=== PATIENT | male | born 1945 | race Hispanic/Latino ===

== ENCOUNTER 2019-10-27 18:51 | Inpatient (IN) | payer OTHER, MEDICARE ==
[~2019-10-27] VITALS: Ht 162.6 cm; Wt 71.8 kg
[2019-10-27] MEDS ORDERED: MORPHINE SULFATE 2 MG/ML 1ML SYG ONE (19:14)
[2019-10-27 20:54] LABS: BASOPHILS % (AUTO) 0.2 % (0.0-5.0); EOSINOPHILS % (AUTO) 0.5 % (0.0-8.0); HEMATOCRIT 34.6 % (42-54); LYMPHOCYTES % (AUTO) 4.8 % (21.0-51.0); MEAN CORPUSCULAR HEMOGLOBIN 25.1 pg (27.0-33.0); MEAN CORPUSCULAR HGB CONC 31.2 g/dL (32.0-36.0); MEAN CORPUSCULAR VOLUME 80.5 fL (79-99); MONOCYTES % (AUTO) 7.2 % (3.0-13.0); NEUTROPHILS % (AUTO) 87.1 % (40.0-77.0); PLATELET COUNT (AUTO) 154 K/uL (130-400); RED CELL DISTRIBUTION WIDTH 16.7 % (11.0-15.5); WHITE BLOOD COUNT (AUTO) 11.1 K/uL (4.8-10.8)
[2019-10-27] MEDS ORDERED: HYDROCODONE/ACETAMINOPHEN 5/325 MG TAB PO PRN (21:00)
[2019-10-27] MEDS ORDERED: HYDROMORPHONE HCL 0.5 MG/0.5 ML ML IV PRN (21:00)
[2019-10-27 21:06] LABS: CREATININE 1.4 mg/dL (0.5-1.5); POTASSIUM 4.7 mmol/L (3.5-5.1)
[2019-10-27 21:08] LABS: INR 0.99 (0.85-1.15); PARTIAL THROMBOPLASTIN TIME 34.5 SEC (26.3-35.5); PROTHROMBIN TIME 10.7 SEC (9.6-11.6)
[2019-10-27 23:40] VITALS: BP 104/56
[2019-10-28] VITALS (25 sets, daily range): BP systolic 90–124; BP diastolic 40–83
[2019-10-28] MEDS ORDERED: CALC600T15 PO (00:19)
[2019-10-28] MEDS ORDERED: ATOR-2 PO (00:19)
[2019-10-28] MEDS ORDERED: AEC81 PO (00:19)
--- NOTE | 2019-10-28 00:30 | NUR ---
ADMIT PT ADMITTED TO ROOM 307, AAOX3. CLAIMS OF PAINS TO RT LOWER LEG. RT LEG ON CAST AT THIS TIME. ELEVATED IN THE BED. ADMISSION CARE DONE. ADMISSION DATA BASE COMPLETED. HOME MED LEST UPDATED IN THE COMPUTER. KEPT COMFORTABLE IN BED. INSTRUCTED TO BE NPO FROM NOW. MEDICATED WITH NORCO FOR PAIN. ORIENTED TO ROOM AND UNIT. IN FOR MORE CARE AND MANAGEMENT. Addendum: 10/28/19 at 0059 by NICOLE MARQUEZ RN RN Amended: Links added.
[2019-10-28] MEDS: DOCUSATE SODIUM 100 MG CAP PO SCH ×3 (00:35→19:52)
--- NOTE | 2019-10-28 01:34 | NUR ---
TEST CLARIFIED PROTOCOL FOR PRE-OP PTS TESTS FOR COVID. WOOD SCIENCE PROFESSOR WAS MADE AWARE THAT VISUAL ARTIST HAD SENT A COMMUNICATION WANTING ALL SX PTS TO BE TESTED WHEN THERE IS TIME. RAPID COVID TEST ORDERED PER PROTOCOL. NASAL SWAB COLLECTED AND SENT TO LAB FOR ANALYSIS.
[2019-10-28 04:45] LABS: BASOPHILS % (AUTO) 0.2 % (0.0-5.0); EOSINOPHILS % (AUTO) 0.7 % (0.0-8.0); HEMATOCRIT 31.1 % (42-54); LYMPHOCYTES % (AUTO) 7.5 % (21.0-51.0); MEAN CORPUSCULAR HEMOGLOBIN 25.4 pg (27.0-33.0); MEAN CORPUSCULAR HGB CONC 31.8 g/dL (32.0-36.0); MEAN CORPUSCULAR VOLUME 79.7 fL (79-99); MONOCYTES % (AUTO) 8.4 % (3.0-13.0); NEUTROPHILS % (AUTO) 82.7 % (40.0-77.0); PLATELET COUNT (AUTO) 155 K/uL (130-400); RED CELL DISTRIBUTION WIDTH 16.6 % (11.0-15.5); WHITE BLOOD COUNT (AUTO) 8.3 K/uL (4.8-10.8)
[2019-10-28 04:54] LABS: CREATININE 1.5 mg/dL (0.5-1.5); POTASSIUM 4.9 mmol/L (3.5-5.1)
[2019-10-28 04:57] LABS: INR 1.01 (0.85-1.15); PARTIAL THROMBOPLASTIN TIME 32.5 SEC (26.3-35.5); PROTHROMBIN TIME 10.5 SEC (9.6-11.6)
--- NOTE | 2019-10-28 06:15 | NUR ---
ROUNDS PT RESTING IN BED. NO COMPLAINTS VERBALIZED. KEPT NPO. FOR MORE CARE AND MANAGEMENT.
[2019-10-28] MEDS: FERROUS GLUCONATE 325 MG TABLET PO SCH ×2 (09:00→19:52)
[2019-10-28] MEDS: MULTIVITAMIN TABLET PO SCH (09:00)
[2019-10-28] MEDS: HEPARIN SODIUM 5000UNIT/ML 1ML VIAL SQ SCH ×2 (09:00→19:51)
[2019-10-28] MEDS: CALCIUM 600 + VITAMIN D 400 TABLET PO SCH (09:00)
[2019-10-28] MEDS ORDERED: CEFAZOLIN SODIUM 1 GM VIAL IVP PRN (10:15)
[2019-10-28] MEDS ORDERED: SUCCINYLCHOLINE CHLORIDE 20 MG/ML 10 ML VIAL ONE (14:54)
[2019-10-28] MEDS ORDERED: GLYCOPYRROLATE 1 MG/5 ML SYRINGE ONE (14:54)
[2019-10-28] MEDS ORDERED: LIDOCAINE PF 2% 5ML ABBOJECT ONE (14:54)
[2019-10-28] MEDS ORDERED: ONDANSETRON HCL 4 MG/2 ML VIAL ONE (14:54)
[2019-10-28] MEDS ORDERED: DEXAMETHASONE SOD PHOSPHATE 10MG/ML 1ML VIAL ONE (14:54)
[2019-10-28] MEDS ORDERED: PROPOFOL 10 MG/ML 20ML VIAL IV ONE (14:54)
[2019-10-28] MEDS ORDERED: NEOSTIGMINE 5MG/5ML SYR IV ONE (14:55)
[2019-10-28] MEDS ORDERED: ROCURONIUM 10MG/1ML SYR 10 MG/ML ML ONE (14:55)
[2019-10-28] MEDS ORDERED: MIDAZOLAM HCL 1 MG/ML 2ML VIAL ONE (14:55)
[2019-10-28] MEDS ORDERED: FENTANYL CITRATE PF 50 MCG/1 ML 2ML VIAL ONE ×2 (14:55→17:03)
[2019-10-28] MEDS ORDERED: ROPIVACAINE 0.5% 5MG/ML 30ML IJ ONE (14:58)
[2019-10-28] MEDS ORDERED: EPHEDRINE SULFATE 50 MG/ML AMPULE ONE (15:45)
--- NOTE | 2019-10-28 16:49 | NUR ---
DCP IA done by Christophe Lugo RN. As per Christophe spoke to pt's sister discussed dc plans. Pt is independent prior to admission, lives at home with sister. Pt has a cane and uses [facility] in [place] for meds. Sister also added a brother as another contact in case of emergency Nicolas Aquino . Feels safe to go back home, still drives, siblings able to assist with transportation and needs as necessary. DC plan to home once stable. CM to cont to follow up. Addendum: 10/28/19 at 1651 by LIAM BOWIE LVN CM Amended: Links added.
[2019-10-28] MEDS ORDERED: VANCOMYCIN HCL 1 GM VIAL ONE (16:58)
[2019-10-28] MEDS ORDERED: KETOROLAC TROMETHAMINE 30MG/ML ONE (17:02)
[2019-10-28] MEDS ORDERED: CEFAZOLIN SODIUM 1 GM VIAL IVP SCH (18:00)
[2019-10-28] MEDS ORDERED: CEFAZOLIN SODIUM 1 GM VIAL ONE (19:20)
[2019-10-28] MEDS: CEFAZOLIN SODIUM 1 GM VIAL IVP SCH (19:51)
[2019-10-29] VITALS: BP 107/49
[2019-10-29 04:00] VITALS: BP 108/48
[2019-10-29 04:25] LABS: BASOPHILS % (AUTO) 0.2 % (0.0-5.0); HEMATOCRIT 30.9 % (42-54); LYMPHOCYTES % (AUTO) 3.9 % (21.0-51.0); MEAN CORPUSCULAR HGB CONC 30.7 g/dL (32.0-36.0); MEAN CORPUSCULAR VOLUME 81.3 fL (79-99); MONOCYTES % (AUTO) 2.7 % (3.0-13.0); NEUTROPHILS % (AUTO) 92.8 % (40.0-77.0); PLATELET COUNT (AUTO) 116 K/uL (130-400); RED CELL DISTRIBUTION WIDTH 16.7 % (11.0-15.5); WHITE BLOOD COUNT (AUTO) 5.2 K/uL (4.8-10.8)
[2019-10-29] MEDS: CEFAZOLIN SODIUM 1 GM VIAL IVP SCH (04:26)
[2019-10-29 04:45] LABS: CREATININE 1.4 mg/dL (0.5-1.5); POTASSIUM 4.7 mmol/L (3.5-5.1)
[2019-10-29] MEDS: CALCIUM 600 + VITAMIN D 400 TABLET PO SCH (08:17)
[2019-10-29] MEDS: FERROUS GLUCONATE 325 MG TABLET PO SCH (08:17)
[2019-10-29] MEDS: MULTIVITAMIN TABLET PO SCH (08:17)
[2019-10-29] MEDS: DOCUSATE SODIUM 100 MG CAP PO SCH (08:17)
[2019-10-29] MEDS: HEPARIN SODIUM 5000UNIT/ML 1ML VIAL SQ SCH (08:24)
[2019-10-29 08:29] VITALS: BP 108/51
[2019-10-29] MEDS ORDERED: APIXABAN 2.5 MG TABLET PO SCH ×2 (11:13→21:00)
--- NOTE | 2019-10-29 11:30 | NUR ---
RE; PT PERCY & DR. ROSIE ESTRADA AWARE ORDERS ENTERED.
[2019-10-29 12:11] VITALS: BP 95/50
--- NOTE | 2019-10-29 12:30 | NUR ---
CM Note: HCD pending approval CM met with pt discussed MD recommendations for short term rehab, pt declined at this time, agreeable only for home w/HH, RUBIN signed for [facility]. Pt verbalized he has his own current standard walker no wheels and bedside commode at home that he can use, sister able to assist with needs as necessary. Faxed order, clinicals, PT, covid result to [facility] for HH, confirmation received. Pt pending approval. Primary nurse aware. CM to cont to follow up.
[2019-10-29 16:00] VITALS: BP 109/81
--- NOTE | 2019-10-29 16:24 | NUR ---
CM Note: HCD cancel, does not need HH CM spoke to Sarah COOL, as per Dr Chavez no weight bearing on right leg, pt would benefit having wheelchair with elevated right leg rest, cancel HH. CM verfied patient has own wheelchair w/elevated right leg rest. Sister will bring leg rest when pt is picked up today, requesting nurse to assist w/switching leg rest on wheelchair as she is having difficulty switching leg rest at home. Primary nurse Lj RN made aware. Pt safe to DC home via private car. CM to continue to follow up.
[2019-10-29] MEDS ORDERED: APIX5TAB PO (17:51)
[2019-10-29 19:26] VITALS: BP 117/50
--- NOTE | 2019-10-29 19:32 | NUR ---
PT D/C INSTRUCTIONS GIVEN, PENDING RIDE HOME INSTRUCTIONS GIVEN USING TEACH BACK TECHNIQUE RE; CONTINUE CURRENT HOME MEDICATIONS., NEW MEDICATIONS WHEN TO CALL MD OR 911 OR SURGEON. DISCHARGE FOLLOW UP: FOLLOW UP WITH YOUR PRIMARY DOCTOR IN 2-4 DAYS. MAY GO A WALK IN OR CALL TO SET UP AN APPOINTMENT. FOLLOW DR VELEZ SURGEON ORTHO RECOMMENDATIONS. AND FOLLOW UP WITH HIM IN 1 WEEK, CALL TO SET UP AN APPOINTMENT AT PHONE; [phone]. ADDRESS; [address] [place] [address]. IF YOU NOTICE BLEEDING OR PAIN MAKE SURE APPLY PRESSURE WITH CLEAN GAUZE AND CALL YOUR SURGEON. IF YOU NOTICE CHANGE IN COLOR IN YOUR TOES ON YOUR OPERATIVE SITE SUCH PALE OR BLUISH COLOR CALL YOUR SURGEON COULD MEAN DRESSING IS TIGHT AND NEEDS TO BE LOOSEN. BE CAREFUL WHEN TAKING ANTICOAGULANTS YOU MAY HAVE A HIGHER RISK FOR BLEEDING. IV OUT INTACT, NO DISTRESS, AAOX3, DENIES ANY QUESTIONS. AWARE TO FOLLOW UP WITH SURGEON. PER SCHEDULE MANAGER AND FAMILY MEMBERS INCLUDING SHAILESH FRANCO, PATIENT ALREADY HAS EQUIPMENT AT HOME. PATIENT STATES HE IS ALSO READY TO GO HOME HE HAS ALL THE PROPER SUPPORT.
--- NOTE | 2019-10-29 20:15 | NUR ---
discharge discharge home via w/c
[2019-10-29] MEDS ORDERED: PANTOPRAZOLE SODIUM 40 MG TABLET.DR PO SCH (21:00)
== END 2019-10-29 20:05 | disposition home or self-care (01) | DRG 493 ==
LOC: EDH 18:51 → EDHIP 20:47 → 3BH 23:38
PROVIDERS: ADMIT Internal Medicine; ATTEND Internal Medicine
PROC: 0QSG04Z Reposition Right Tibia with Internal Fixation Device, Open Approach (ICD-10-PCS; principal; 2019-10-28 15:34)
PROC: 0QSG04Z Reposition Right Tibia with Internal Fixation Device, Open Approach (ICD-10-PCS; 2019-10-28 15:34)
DX: S82.141A Displaced bicondylar fracture of right tibia, initial encounter for closed fracture (principal); D62 Acute posthemorrhagic anemia; S82.151A Displaced fracture of right tibial tuberosity, initial encounter for closed fracture; D50.9 Iron deficiency anemia, unspecified; E78.00 Pure hypercholesterolemia, unspecified; E78.5 Hyperlipidemia, unspecified; Z87.891 Personal history of nicotine dependence; W01.0XXA Fall on same level from slipping, tripping and stumbling without subsequent striking against object, initial encounter; Y93.89 Activity, other specified; Y92.89 Other specified places as the place of occurrence of the external cause; Y99.8 Other external cause status; M81.0 Age-related osteoporosis without current pathological fracture; Z20.828 Contact with and (suspected) exposure to other viral communicable diseases
CPT/HCPCS: 36415; 71045; 73562; 73590; 80048; 85025; 85610; 85730; 87426; 93005; 97039; G0378; J0330; J0690; J1100; J1644; J1885; J2001; J2250; J2405; J2704; J2710; J2795; J3010; J3370; J3490; U0003

== ENCOUNTER → 2022-04-24 | Outpatient (CLI) | payer OTHER, MEDICARE ==
[~2022-04-24] MED LIST: APIX5TAB PO; ATOR-2 PO; CALC-1125 PO
== END | disposition home or self-care (01) ==
LOC: RAH 10:18
PROVIDERS: ATTEND Family Medicine
DX: R06.02 Shortness of breath (principal); I70.0 Atherosclerosis of aorta; M47.815 Spondylosis without myelopathy or radiculopathy, thoracolumbar region
CPT/HCPCS: 71046

== ENCOUNTER → 2022-06-01 | Outpatient (CLI) | payer OTHER, MEDICARE ==
[2022-06-01 12:42] LABS: HEMOGLOBIN A1C 4.9 % (4.0-6.0)
[2022-06-01 12:45] LABS: CHOLESTEROL 147 mg/dL (<200); HDL CHOLESTEROL 69 mg/dL (29-71); LDL DIRECT 70 mg/dL (0-99); TRIGLYCERIDES 50 mg/dL (30-200)
== END | disposition home or self-care (01) ==
LOC: LAB 08:26
PROVIDERS: ATTEND Student in an Organized Health Care Education/Training Program
DX: R94.31 Abnormal electrocardiogram [ECG] [EKG] (principal); R06.00 Dyspnea, unspecified; I10 Essential (primary) hypertension; E78.5 Hyperlipidemia, unspecified; Z79.899 Other long term (current) drug therapy
CPT/HCPCS: 36415; 80061; 83036

== ENCOUNTER → 2022-06-09 | Outpatient (CLI) | payer OTHER, MEDICARE ==
[2022-06-09 12:27] LABS: ALBUMIN 3.8 g/dL (3.5-5.0); CREATININE 1.6 mg/dL (0.5-1.5); POTASSIUM 4.1 mmol/L (3.5-5.1); TOTAL PROTEIN, SERUM 7.5 g/dL (6.0-8.3)
== END | disposition home or self-care (01) ==
LOC: LAB 08:12
PROVIDERS: ATTEND Student in an Organized Health Care Education/Training Program
DX: R94.31 Abnormal electrocardiogram [ECG] [EKG] (principal)
CPT/HCPCS: 36415; 80053

== ENCOUNTER → 2022-06-12 | Outpatient (CLI) | payer OTHER, MEDICARE ==
[~2022-06-12] MED LIST changes: +IOHEXOL 350 MG/ML 100ML INFUS..BTL IV ONE
== END | disposition home or self-care (01) ==
LOC: RAH 10:32
PROVIDERS: ATTEND Student in an Organized Health Care Education/Training Program
DX: I25.10 Atherosclerotic heart disease of native coronary artery without angina pectoris (principal); R06.00 Dyspnea, unspecified; M47.815 Spondylosis without myelopathy or radiculopathy, thoracolumbar region
CPT/HCPCS: 75574; Q9967

== ENCOUNTER → 2022-06-19 | Outpatient (CLI) | payer OTHER, MEDICARE ==
[~2022-06-19] MED LIST changes: -IOHEXOL 350 MG/ML 100ML INFUS..BTL IV ONE
== END | disposition home or self-care (01) ==
LOC: SHCH 13:57
PROVIDERS: ATTEND Student in an Organized Health Care Education/Training Program
DX: I35.0 Nonrheumatic aortic (valve) stenosis (principal); I11.9 Hypertensive heart disease without heart failure; E78.5 Hyperlipidemia, unspecified
CPT/HCPCS: 93306

== ENCOUNTER 2022-07-11 08:12 | Day surgery (SDC) | payer OTHER, MEDICARE ==
[2022-07-06 13:30] LABS: BASOPHILS % (AUTO) 0.6 % (0.0-5.0); EOSINOPHILS % (AUTO) 3.5 % (0.0-8.0); HEMATOCRIT 36.7 % (42-54); LYMPHOCYTES % (AUTO) 17.5 % (21.0-51.0); MEAN CORPUSCULAR HEMOGLOBIN 24.3 pg (27.0-33.0); MEAN CORPUSCULAR HGB CONC 29.7 g/dL (32.0-36.0); MEAN CORPUSCULAR VOLUME 81.9 fL (79-99); MONOCYTES % (AUTO) 12.5 % (3.0-13.0); NEUTROPHILS % (AUTO) 65.5 % (40.0-77.0); PLATELET COUNT (AUTO) 150 K/uL (130-400); RED BLOOD CELL COUNT(AUTO) 4.48 MIL/uL (4.50-6.20); RED CELL DISTRIBUTION WIDTH 20.3 % (11.0-15.5); WHITE BLOOD COUNT (AUTO) 5.4 K/uL (4.8-10.8)
[2022-07-06 13:32] VITALS: BP 108/62
[2022-07-06 13:38] LABS: CREATININE 1.7 mg/dL (0.5-1.5)
[2022-07-06 13:41] LABS: INR 0.97 (0.85-1.15); PROTHROMBIN TIME 10.6 SEC (9.6-11.6)
[2022-07-11] VITALS (10 sets, daily range): BP systolic 107–136; BP diastolic 49–67
[~2022-07-11] VITALS: Ht 167.6 cm; Wt 67.6 kg
[~2022-07-11 08:12] MED LIST changes: +AEC81 PO; -APIX5TAB PO; -ATOR-2 PO; +ATOR20TA65 PO; -CALC-1125 PO; +CETI10TA57 PO; +ERGO500093 PO; +FERR-72 PO; +FOLI1 PO; +PANT40TA54 PO; +VIT B12 PO
[2022-07-11] MEDS ORDERED: 0.9%NACL 1000ML 1,000 ML IV ONE (08:44)
[2022-07-11] MEDS ORDERED: MIDAZOLAM HCL 1 MG/ML 2ML VIAL ONE ×2 (11:46→12:26)
[2022-07-11] MEDS ORDERED: LIDOCAINE HCL 400MG/20ML VIAL ONE (11:46)
[2022-07-11] MEDS ORDERED: FENTANYL CITRATE PF 50 MCG/1 ML 2ML VIAL ONE (11:46)
[2022-07-11] MEDS ORDERED: NITROGLYCERIN 50MG VIAL ONE (11:47)
[2022-07-11] MEDS ORDERED: VERAPAMIL HCL 2.5 MG/ML VIAL ONE (11:47)
[2022-07-11] MEDS ORDERED: HEPARIN 10,000 UNIT/10ML (1,000 UNIT/ML) VIAL ONE (11:47)
[2022-07-11] MEDS ORDERED: IOHEXOL-350 75 ML VIAL IV ONE (11:47)
[2022-07-11] MEDS ORDERED: ATROPINE 1MG SYG IVP ONE (12:23)
[2022-07-11] MEDS ORDERED: GLUCAGON 1MG KIT 1 MG ML IM PRN (13:00)
[2022-07-11] MEDS ORDERED: 0.9%NACL 1000ML 1,000 ML IV SCH (13:00)
[2022-07-11] MEDS ORDERED: DEXTROSE 50%-WATER 50 ML DISP.SYRIN IV PRN (13:00)
== END 2022-07-11 17:02 | disposition home or self-care (01) ==
LOC: DAH 08:12
PROVIDERS: ATTEND Student in an Organized Health Care Education/Training Program
DX: I25.119 Atherosclerotic heart disease of native coronary artery with unspecified angina pectoris (principal); I25.82 Chronic total occlusion of coronary artery; I44.0 Atrioventricular block, first degree; R94.31 Abnormal electrocardiogram [ECG] [EKG]; I10 Essential (primary) hypertension; E78.5 Hyperlipidemia, unspecified; R73.03 Prediabetes; D64.9 Anemia, unspecified; I25.2 Old myocardial infarction; Z79.01 Long term (current) use of anticoagulants; Z79.899 Other long term (current) drug therapy; Z87.891 Personal history of nicotine dependence
CPT/HCPCS: 80048; 85025; 85610; 85730; 36415; 71045; 93005; 93458; C1769 ×2; C1894; Q9965; J3010; J3490 ×3; J7030; J1644 ×2; J2250 ×2; Q9967; A4215; A4222; A6260; A4221; A4663; A4216; A6206; A4606; A4223 ×3; 96360; 96374; 96375; 99156; 99157; J0461

== ENCOUNTER 2022-07-21 12:00 | Inpatient (IN) | payer OTHER, MEDICARE ==
[2022-07-20 12:51] LABS: BASOPHILS % (AUTO) 0.6 % (0.0-5.0); EOSINOPHILS % (AUTO) 3.5 % (0.0-8.0); HEMATOCRIT 37.6 % (42-54); LYMPHOCYTES % (AUTO) 17.6 % (21.0-51.0); MEAN CORPUSCULAR HEMOGLOBIN 24.5 pg (27.0-33.0); MEAN CORPUSCULAR HGB CONC 29.8 g/dL (32.0-36.0); MEAN CORPUSCULAR VOLUME 82.1 fL (79-99); MONOCYTES % (AUTO) 8.5 % (3.0-13.0); NEUTROPHILS % (AUTO) 69.4 % (40.0-77.0); PLATELET COUNT (AUTO) 155 K/uL (130-400); RED BLOOD CELL COUNT(AUTO) 4.58 MIL/uL (4.50-6.20); RED CELL DISTRIBUTION WIDTH 18.6 % (11.0-15.5); WHITE BLOOD COUNT (AUTO) 4.8 K/uL (4.8-10.8)
[2022-07-20 13:05] LABS: HEMOGLOBIN A1C 5.4 % (4.0-6.0)
[2022-07-20 13:06] LABS: INR 0.98 (0.85-1.15); PROTHROMBIN TIME 10.7 SEC (9.6-11.6)
[2022-07-20 13:07] LABS: PARTIAL THROMBOPLASTIN TIME 31.9 SEC (26.3-35.5)
[2022-07-20 13:10] LABS: ALBUMIN 3.9 g/dL (3.5-5.0); CREATININE 1.4 mg/dL (0.5-1.5); POTASSIUM 5.2 mmol/L (3.5-5.1); TOTAL PROTEIN, SERUM 7.8 g/dL (6.0-8.3)
[2022-07-20 13:19] LABS: ABG BASE EXCESS -2.9 mmol/L (-2.0-3.0); ABG HCO3 21.8 mmol/L (21.0-28.0); ABG OXYGEN SATURATION 96.1 % (95.0-99.0); ABG PCO2 38 mmHg (35-48)
[2022-07-20 13:23] VITALS: BP 138/69
[2022-07-20 13:35] LABS: B-TYPE NATRIURETIC PEPTIDE 12 pg/mL (0-100)
[~2022-07-21] VITALS: Ht 172.7 cm; Wt 71.2 kg
[~2022-07-21 12:00] MED LIST changes: -ERGO500093 PO; +FOLI0.8C PO; -FOLI1 PO; +VITAD50000 PO
[2022-07-24] VITALS (22 sets, daily range): BP systolic 75–145; BP diastolic 36–88
[2022-07-24] MEDS ORDERED: NOREPINEPHRINE BITARTRATE 8 MG in DEXTROSE 5%-WATER 250 ML IV PRN (07:00)
[2022-07-24] MEDS ORDERED: AMINOCAPROIC ACID 5,000MG VIAL 15,000 MG in 0.9% NACL 500ML IV.SOLN 420 ML IV PRN (07:00)
[2022-07-24] MEDS ORDERED: EPINEPHRINE PF 1MG (1:1,000) 10 MG in 0.9% NACL 250ML 240 ML IV PRN ×2 (07:00→17:00)
[2022-07-24] MEDS ORDERED: 0.9%NACL 1000ML 1,000 ML IV ONE (11:55)
[2022-07-24] MEDS ORDERED: METOPROLOL TARTRATE 25 MG TAB ONE (12:05)
[2022-07-24] MEDS: CEFAZOLIN SODIUM 2 GM VIAL ONE ×2 (12:23→15:00)
[2022-07-24] MEDS ORDERED: NICARDIPINE 25MG INJ IV ONE ×3 (14:18→14:21)
[2022-07-24] MEDS ORDERED: SUCCINYLCHOLINE CHLORIDE 20 MG/ML 10 ML VIAL ONE (14:32)
[2022-07-24] MEDS ORDERED: MIDAZOLAM HCL 1 MG/ML 2ML VIAL ONE ×2 (14:33→14:41)
[2022-07-24] MEDS ORDERED: ROCURONIUM 10MG/1ML SYR 10 MG/ML ML ONE ×2 (14:33→15:24)
[2022-07-24] MEDS ORDERED: PROPOFOL 10 MG/ML 20ML VIAL IV ONE (14:33)
[2022-07-24] MEDS ORDERED: FENTANYL CITRATE PF 50 MCG/1 ML 20ML VIAL IJ ONE (14:33)
[2022-07-24] MEDS ORDERED: GLYCOPYRROLATE 1 MG/5 ML SYRINGE ONE (14:54)
[2022-07-24 15:25] LABS: ABG HCO3 20.1 mmol/L (21.0-28.0); ABG OXYGEN SATURATION 99.6 % (95.0-99.0); ABG PCO2 37 mmHg (35-48)
[2022-07-24] MEDS ORDERED: CEFAZOLIN SODIUM 1 GM VIAL ONE (15:41)
[2022-07-24] MEDS ORDERED: PAPAVERINE HCL 30 MG/ML 2ML VIAL ONE (15:42)
[2022-07-24] MEDS ORDERED: ONDANSETRON 4MG INJ IV PRN (17:00)
[2022-07-24] MEDS ORDERED: ACETAMINOPHEN 650 MG SUPPOSITORY RC PRN (17:00)
[2022-07-24] MEDS ORDERED: MAGNESIUM HYDROXIDE 30 ML/UDCUP PO PRN (17:00)
[2022-07-24] MEDS ORDERED: MORPHINE 4 MG SYG IV PRN (17:00)
[2022-07-24] MEDS ORDERED: ACETAMINOPHEN 325 MG TAB PO PRN ×2 (17:00)
[2022-07-24] MEDS ORDERED: INSULIN REGULAR, HUMAN 3ML 100 UNIT in 0.9%NACL 100ML 99 ML IV SCH ×2 (17:00)
[2022-07-24] MEDS ORDERED: 0.9%NACL 10ML VIAL IVP PRN (17:00)
[2022-07-24] MEDS ORDERED: PROPOFOL 1000 MG/100 ML 100 ML IV PRN (17:00)
[2022-07-24] MEDS ORDERED: POTASSIUM PHOS 15 mMOL+NS250ML 250 ML IV PRN (17:00)
[2022-07-24] MEDS ORDERED: 0.9% NACL 500ML IV.SOLN 500 ML IV SCH (17:00)
[2022-07-24] MEDS ORDERED: DEXTROSE 50%-WATER 50 ML DISP.SYRIN IV PRN (17:00)
[2022-07-24] MEDS ORDERED: AMINOCAPROIC ACID 5,000MG VIAL 15,000 MG in 0.9% NACL 250ML 250 ML IV SCH (17:00)
[2022-07-24] MEDS ORDERED: NITROGLYCERIN 50MG/D5W 250ML 250 BOT IV SCH (17:00)
[2022-07-24] MEDS ORDERED: GLUCAGON 1MG KIT 1 MG ML IM PRN (17:00)
[2022-07-24] MEDS ORDERED: ALBUMIN (HUMAN) 5% 250 ML IV PRN (17:00)
[2022-07-24] MEDS ORDERED: NOREPINEPHRIN 4MG/NS 250ML 250 ML IV PRN (17:00)
[2022-07-24] MEDS ORDERED: TRAMADOL HCL 50 MG TABLET PO PRN ×2 (17:00)
[2022-07-24] MEDS: 0.9%NACL 1000ML 1,000 ML IV SCH ×2 (17:00→20:23)
[2022-07-24] MEDS ORDERED: LACTULOSE 20 GM/30 ML UDCUP PO PRN (17:00)
[2022-07-24] MEDS ORDERED: MORPHINE 2 MG SYG IV PRN (17:00)
[2022-07-24] MEDS ORDERED: PROTAMINE SULFATE 10 MG/ML 5 ML VIAL ONE ×2 (17:25)
[2022-07-24 17:43] LABS: ABG BASE EXCESS -6.4 mmol/L (-2.0-3.0); ABG HCO3 18.9 mmol/L (21.0-28.0); ABG OXYGEN SATURATION 99.4 % (95.0-99.0); ABG PCO2 37 mmHg (35-48)
[2022-07-24] MEDS ORDERED: SODIUM BICARB 8.4% 50ML SYRINGE ONE (17:45)
[2022-07-24] MEDS ORDERED: SODIUM BICARB 50MEQ 50ML VIAL 100 ML ONE (17:46)
[2022-07-24 18:29] LABS: ABG BASE EXCESS 1.6 mmol/L (-2.0-3.0); ABG HCO3 25.8 mmol/L (21.0-28.0); ABG OXYGEN SATURATION 99.1 % (95.0-99.0); ABG PCO2 39 mmHg (35-48)
[2022-07-24] MEDS ORDERED: ASPIRIN 81MG CHEW TAB NG ONE (18:30)
[2022-07-24 18:33] LABS: MEAN CORPUSCULAR HEMOGLOBIN 24.9 pg (27.0-33.0); MEAN CORPUSCULAR HGB CONC 30.7 g/dL (32.0-36.0); MEAN CORPUSCULAR VOLUME 80.8 fL (79-99); RED BLOOD CELL COUNT(AUTO) 3.34 MIL/uL (4.50-6.20); RED CELL DISTRIBUTION WIDTH 18.2 % (11.0-15.5); WHITE BLOOD COUNT (AUTO) 25.7 K/uL (4.8-10.8)
[2022-07-24] MEDS: POTASSIUM CHLORIDE 20MEQ/100ML 100 ML IV PRN ×4 (18:34→22:35)
[2022-07-24] MEDS ORDERED: INSULIN HUMULIN R 100 UNIT/ML 3ML ONE (18:36)
[2022-07-24 18:46] LABS: INR 1.23 (0.85-1.15); PROTHROMBIN TIME 13.3 SEC (9.6-11.6)
[2022-07-24 18:47] LABS: CREATININE 1.1 mg/dL (0.5-1.5); MAGNESIUM 1.6 mg/dL (1.80-2.40); PARTIAL THROMBOPLASTIN TIME 37.6 SEC (26.3-35.5); POTASSIUM 3.5 mmol/L (3.5-5.1)
[2022-07-24 19:36] LABS: ABG BASE EXCESS -1.7 mmol/L (-2.0-3.0); ABG HCO3 22.8 mmol/L (21.0-28.0); ABG OXYGEN SATURATION 99.3 % (95.0-99.0); ABG PCO2 38 mmHg (35-48)
[2022-07-24] MEDS: SODIUM BICARB 50MEQ 50ML VIAL IV PRN ×3 (19:41→22:34)
[2022-07-24] MEDS: DOCUSATE SODIUM 100 MG CAP PO SCH (20:12)
[2022-07-24] MEDS: ATORVASTATIN 40 MG TABLET PO SCH (20:12)
[2022-07-24] MEDS: MAGNESIUM 2GM PREMIX 50ML 50 ML IV PRN (20:19)
[2022-07-24] MEDS ORDERED: ALBUMIN (HUMAN) 5% 250 ML IV ONE (20:35)
[2022-07-24 20:38] LABS: ABG BASE EXCESS -0.2 mmol/L (-2.0-3.0); ABG HCO3 23.7 mmol/L (21.0-28.0); ABG PCO2 36 mmHg (35-48)
[2022-07-24 21:20] LABS: ABG BASE EXCESS -1.6 mmol/L (-2.0-3.0); ABG HCO3 23.6 mmol/L (21.0-28.0); ABG OXYGEN SATURATION 98.9 % (95.0-99.0); ABG PCO2 42 mmHg (35-48)
[2022-07-24] MEDS: CEFAZOLIN SODIUM 1 GM VIAL IVPB SCH (21:31)
[2022-07-24 22:23] LABS: ABG BASE EXCESS -1.4 mmol/L (-2.0-3.0); ABG HCO3 23.8 mmol/L (21.0-28.0); ABG OXYGEN SATURATION 98.3 % (95.0-99.0); ABG PCO2 42 mmHg (35-48)
[2022-07-24 23:25] LABS: ABG BASE EXCESS 0.2 mmol/L (-2.0-3.0); ABG HCO3 25.1 mmol/L (21.0-28.0); ABG OXYGEN SATURATION 98.2 % (95.0-99.0); ABG PCO2 42 mmHg (35-48)
[2022-07-24] MEDS: CALCIUM GLUC 1GM 1 GM in 0.9%NACL 50ML 50 ML IV PRN (23:28)
[2022-07-25] VITALS (118 sets, daily range): BP systolic 70–150; BP diastolic 34–104
[2022-07-25 00:16] LABS: ABG BASE EXCESS -2.2 mmol/L (-2.0-3.0); ABG HCO3 22.9 mmol/L (21.0-28.0); ABG OXYGEN SATURATION 98.1 % (95.0-99.0); ABG PCO2 40 mmHg (35-48)
[2022-07-25] MEDS: POTASSIUM CHLORIDE 20MEQ/100ML 100 ML IV PRN (00:28)
[2022-07-25] MEDS: SODIUM BICARB 50MEQ 50ML VIAL IV PRN ×2 (00:29→05:05)
[2022-07-25] MEDS ORDERED: NOREPINEPHRIN 8MG/250ML NS PMX 250 ML IV ONE (00:34)
[2022-07-25 01:27] LABS: ABG BASE EXCESS 2.5 mmol/L (-2.0-3.0); ABG HCO3 27.1 mmol/L (21.0-28.0); ABG OXYGEN SATURATION 98.1 % (95.0-99.0); ABG PCO2 42 mmHg (35-48)
[2022-07-25 01:32] LABS: HEMATOCRIT 26.9 % (42-54); MEAN CORPUSCULAR HEMOGLOBIN 26.3 pg (27.0-33.0); MEAN CORPUSCULAR VOLUME 82.3 fL (79-99); RED BLOOD CELL COUNT(AUTO) 3.27 MIL/uL (4.50-6.20); WHITE BLOOD COUNT (AUTO) 17.9 K/uL (4.8-10.8)
[2022-07-25] MEDS ORDERED: CALCIUM GLUC 1GM/10ML VIAL ONE (01:39)
[2022-07-25 01:46] LABS: CREATININE 1.4 mg/dL (0.5-1.5); MAGNESIUM 2.2 mg/dL (1.80-2.40); PHOSPHORUS 2.8 mg/dL (2.5-4.9); POTASSIUM 4.8 mmol/L (3.5-5.1)
[2022-07-25 01:52] LABS: INR 1.17 (0.85-1.15); PROTHROMBIN TIME 12.6 SEC (9.6-11.6)
[2022-07-25 01:53] LABS: PARTIAL THROMBOPLASTIN TIME 33.7 SEC (26.3-35.5)
[2022-07-25] MEDS: CALCIUM GLUC 1GM 1 GM in 0.9%NACL 50ML 50 ML IV PRN ×2 (01:57→15:54)
[2022-07-25 02:17] LABS: ABG BASE EXCESS 0.9 mmol/L (-2.0-3.0); ABG HCO3 25.9 mmol/L (21.0-28.0); ABG OXYGEN SATURATION 98.3 % (95.0-99.0); ABG PCO2 43 mmHg (35-48)
[2022-07-25 03:34] LABS: ABG BASE EXCESS -0.7 mmol/L (-2.0-3.0); ABG HCO3 24.3 mmol/L (21.0-28.0); ABG OXYGEN SATURATION 98.4 % (95.0-99.0); ABG PCO2 41 mmHg (35-48)
[2022-07-25 04:28] LABS: ABG BASE EXCESS -1.8 mmol/L (-2.0-3.0); ABG OXYGEN SATURATION 98.6 % (95.0-99.0); ABG PCO2 39 mmHg (35-48)
[2022-07-25] MEDS: CEFAZOLIN SODIUM 1 GM VIAL IVPB SCH ×2 (05:12→14:34)
[2022-07-25 05:18] LABS: ABG BASE EXCESS 1.3 mmol/L (-2.0-3.0); ABG HCO3 26.9 mmol/L (21.0-28.0); ABG OXYGEN SATURATION 98.5 % (95.0-99.0); ABG PCO2 47 mmHg (35-48)
[2022-07-25 06:54] LABS: HEMATOCRIT 38.3 % (42-54); MEAN CORPUSCULAR HEMOGLOBIN 26.8 pg (27.0-33.0); MEAN CORPUSCULAR HGB CONC 33.2 g/dL (32.0-36.0); RED BLOOD CELL COUNT(AUTO) 4.73 MIL/uL (4.50-6.20); RED CELL DISTRIBUTION WIDTH 15.2 % (11.0-15.5); WHITE BLOOD COUNT (AUTO) 14.2 K/uL (4.8-10.8)
[2022-07-25 07:00] LABS: INR 1.07 (0.85-1.15); PROTHROMBIN TIME 11.6 SEC (9.6-11.6)
[2022-07-25 07:01] LABS: PARTIAL THROMBOPLASTIN TIME 34.6 SEC (26.3-35.5)
[2022-07-25 07:05] LABS: CREATININE 1.6 mg/dL (0.5-1.5); MAGNESIUM 2.1 mg/dL (1.80-2.40); POTASSIUM 4.3 mmol/L (3.5-5.1)
[2022-07-25] MEDS: FOLIC ACID 1 MG TABLET PO SCH (08:19)
[2022-07-25] MEDS: DOCUSATE SODIUM 100 MG CAP PO SCH ×2 (08:19→20:00)
[2022-07-25] MEDS: FERROUS SULFATE 325 MG TABLET.DR PO SCH (08:20)
[2022-07-25] MEDS: PANTOPRAZOLE 40 MG TAB DR PO SCH (08:20)
[2022-07-25] MEDS: FUROSEMIDE 20MG VIAL IV SCH ×2 (08:20→20:01)
[2022-07-25] MEDS: ASPIRIN 81 MG EC TAB PO SCH (08:20)
[2022-07-25 14:24] LABS: ABG BASE EXCESS 2.5 mmol/L (-2.0-3.0); ABG HCO3 26.6 mmol/L (21.0-28.0); ABG OXYGEN SATURATION 97.9 % (95.0-99.0); ABG PCO2 39 mmHg (35-48)
[2022-07-25] MEDS: ATORVASTATIN 40 MG TABLET PO SCH (20:00)
[2022-07-25 20:23] LABS: HEMATOCRIT 31.3 % (42-54); MEAN CORPUSCULAR HEMOGLOBIN 27.1 pg (27.0-33.0); MEAN CORPUSCULAR HGB CONC 32.9 g/dL (32.0-36.0); MEAN CORPUSCULAR VOLUME 82.4 fL (79-99); RED BLOOD CELL COUNT(AUTO) 3.8 MIL/uL (4.50-6.20); RED CELL DISTRIBUTION WIDTH 15.9 % (11.0-15.5); WHITE BLOOD COUNT (AUTO) 14.9 K/uL (4.8-10.8)
[2022-07-25 20:40] LABS: CREATININE 1.7 mg/dL (0.5-1.5); POTASSIUM 4.1 mmol/L (3.5-5.1)
[2022-07-26] VITALS (95 sets, daily range): BP systolic 90–150; BP diastolic 32–70
[2022-07-26] MEDS ORDERED: NOREPINEPHRIN 8MG/250ML NS PMX 250 ML IV ONE (02:22)
[2022-07-26 04:15] LABS: ABG BASE EXCESS 1.1 mmol/L (-2.0-3.0); ABG OXYGEN SATURATION 96.5 % (95.0-99.0); ABG PCO2 37 mmHg (35-48)
[2022-07-26 04:45] LABS: HEMATOCRIT 29.5 % (42-54); MEAN CORPUSCULAR HEMOGLOBIN 27.2 pg (27.0-33.0); MEAN CORPUSCULAR HGB CONC 33.2 g/dL (32.0-36.0); MEAN CORPUSCULAR VOLUME 81.9 fL (79-99); RED BLOOD CELL COUNT(AUTO) 3.6 MIL/uL (4.50-6.20); RED CELL DISTRIBUTION WIDTH 15.9 % (11.0-15.5); WHITE BLOOD COUNT (AUTO) 17.1 K/uL (4.8-10.8)
[2022-07-26 05:06] LABS: CREATININE 1.7 mg/dL (0.5-1.5); POTASSIUM 4.1 mmol/L (3.5-5.1)
[2022-07-26] MEDS ORDERED: CALCIUM GLUC 1GM/10ML VIAL ONE (05:30)
[2022-07-26] MEDS: CALCIUM GLUC 1GM 1 GM in 0.9%NACL 50ML 50 ML IV PRN (05:38)
[2022-07-26] MEDS: POTASSIUM CHLORIDE 20MEQ/100ML 100 ML IV PRN (06:17)
[2022-07-26] MEDS: METOPROLOL TARTRATE 25 MG TAB PO SCH ×2 (09:00→20:36)
[2022-07-26] MEDS: FUROSEMIDE 20 MG TABLET PO SCH ×2 (09:00→16:38)
[2022-07-26] MEDS: FOLIC ACID 1 MG TABLET PO SCH (09:28)
[2022-07-26] MEDS: PANTOPRAZOLE 40 MG TAB DR PO SCH (09:28)
[2022-07-26] MEDS: FERROUS SULFATE 325 MG TABLET.DR PO SCH (09:28)
[2022-07-26] MEDS: ASPIRIN 81 MG EC TAB PO SCH (09:28)
[2022-07-26] MEDS: DOCUSATE SODIUM 100 MG CAP PO SCH ×2 (09:28→20:36)
[2022-07-26] MEDS: INSULIN HUMULIN R 100 UNIT/ML 3ML SQ SCH ×3 (11:30→20:38)
[2022-07-26] MEDS: ATORVASTATIN 40 MG TABLET PO SCH (20:36)
[2022-07-27] VITALS (96 sets, daily range): BP systolic 0–135; BP diastolic 0–88
[2022-07-27 04:42] LABS: HEMATOCRIT 28.2 % (42-54); MEAN CORPUSCULAR HGB CONC 31.9 g/dL (32.0-36.0); MEAN CORPUSCULAR VOLUME 84.7 fL (79-99); RED BLOOD CELL COUNT(AUTO) 3.33 MIL/uL (4.50-6.20); RED CELL DISTRIBUTION WIDTH 16.7 % (11.0-15.5); WHITE BLOOD COUNT (AUTO) 13.2 K/uL (4.8-10.8)
[2022-07-27 04:56] LABS: CREATININE 1.4 mg/dL (0.5-1.5)
[2022-07-27] MEDS ORDERED: NOREPINEPHRIN 8MG/250ML NS PMX 250 ML IV ONE (06:36)
[2022-07-27] MEDS: INSULIN HUMULIN R 100 UNIT/ML 3ML SQ SCH ×4 (06:40→21:00)
[2022-07-27] MEDS: DOCUSATE SODIUM 100 MG CAP PO SCH ×2 (07:55→20:30)
[2022-07-27] MEDS: ASPIRIN 81 MG EC TAB PO SCH (07:55)
[2022-07-27] MEDS: PANTOPRAZOLE 40 MG TAB DR PO SCH (07:55)
[2022-07-27] MEDS: FERROUS SULFATE 325 MG TABLET.DR PO SCH (07:55)
[2022-07-27] MEDS: FUROSEMIDE 20 MG TABLET PO SCH ×2 (07:56→16:13)
[2022-07-27] MEDS: METOPROLOL TARTRATE 25 MG TAB PO SCH ×2 (07:57→20:30)
[2022-07-27] MEDS: FOLIC ACID 1 MG TABLET PO SCH (07:57)
[2022-07-27] MEDS: ENOXAPARIN SODIUM 30 MG/0.3 ML SQ SCH (07:57)
[2022-07-27] MEDS: IPRATROPIUM 0.5 MG/2.5 ML INH IH SCH ×3 (11:18→23:34)
[2022-07-27] MEDS: BUDESONIDE 0.25 MG/2 ML INH IH SCH (18:50)
[2022-07-27] MEDS: ATORVASTATIN 40 MG TABLET PO SCH (20:30)
[2022-07-28] VITALS (50 sets, daily range): BP systolic 84–244; BP diastolic 32–241
[2022-07-28 04:20] LABS: CREATININE 1.3 mg/dL (0.5-1.5); MAGNESIUM 1.6 mg/dL (1.80-2.40); POTASSIUM 3.1 mmol/L (3.5-5.1)
[2022-07-28 05:04] LABS: HEMATOCRIT 27.6 % (42-54); MEAN CORPUSCULAR HGB CONC 31.9 g/dL (32.0-36.0); MEAN CORPUSCULAR VOLUME 84.7 fL (79-99); RED BLOOD CELL COUNT(AUTO) 3.26 MIL/uL (4.50-6.20); RED CELL DISTRIBUTION WIDTH 16.7 % (11.0-15.5); WHITE BLOOD COUNT (AUTO) 4.6 K/uL (4.8-10.8)
[2022-07-28] MEDS: MAGNESIUM 2GM PREMIX 50ML 50 ML IV PRN (05:24)
[2022-07-28 05:25] LABS: PLATELET COUNT (AUTO) 56 K/uL (130-400)
[2022-07-28] MEDS: POTASSIUM CHLORIDE 20MEQ/100ML 100 ML IV PRN (07:11)
[2022-07-28] MEDS: IPRATROPIUM 0.5 MG/2.5 ML INH IH SCH ×4 (07:12→23:19)
[2022-07-28] MEDS: BUDESONIDE 0.25 MG/2 ML INH IH SCH ×2 (07:13→18:49)
[2022-07-28] MEDS: INSULIN HUMULIN R 100 UNIT/ML 3ML SQ SCH ×4 (07:30→21:00)
[2022-07-28] MEDS: PANTOPRAZOLE 40 MG TAB DR PO SCH (07:59)
[2022-07-28] MEDS: FOLIC ACID 1 MG TABLET PO SCH (07:59)
[2022-07-28] MEDS: FERROUS SULFATE 325 MG TABLET.DR PO SCH (07:59)
[2022-07-28] MEDS: FUROSEMIDE 20 MG TABLET PO SCH ×2 (07:59→16:59)
[2022-07-28] MEDS: ASPIRIN 81 MG EC TAB PO SCH (07:59)
[2022-07-28] MEDS: ENOXAPARIN SODIUM 30 MG/0.3 ML SQ SCH (08:00)
[2022-07-28] MEDS: DOCUSATE SODIUM 100 MG CAP PO SCH ×2 (08:00→21:00)
[2022-07-28] MEDS: METOPROLOL TARTRATE 25 MG TAB PO SCH ×2 (08:00→21:00)
[2022-07-28] MEDS ORDERED: POTASSIUM CHLORIDE 10% ELIXIR 20 MEQ/15 ML UDCUP PO PRN (11:30)
[2022-07-28] MEDS ORDERED: POTASSIUM CHLORIDE 20MEQ/100ML 100 ML IV PRN (11:30)
[2022-07-28] MEDS: ATORVASTATIN 40 MG TABLET PO SCH (20:31)
[2022-07-29] VITALS (12 sets, daily range): BP systolic 96–117; BP diastolic 51–64
[2022-07-29 03:32] LABS: HEMATOCRIT 27.5 % (42-54); MEAN CORPUSCULAR HEMOGLOBIN 27.3 pg (27.0-33.0); MEAN CORPUSCULAR HGB CONC 31.6 g/dL (32.0-36.0); MEAN CORPUSCULAR VOLUME 86.2 fL (79-99); RED BLOOD CELL COUNT(AUTO) 3.19 MIL/uL (4.50-6.20); RED CELL DISTRIBUTION WIDTH 16.8 % (11.0-15.5); WHITE BLOOD COUNT (AUTO) 5.9 K/uL (4.8-10.8)
[2022-07-29 03:53] LABS: CREATININE 1.4 mg/dL (0.5-1.5); MAGNESIUM 2.2 mg/dL (1.80-2.40); POTASSIUM 4.3 mmol/L (3.5-5.1)
[2022-07-29] MEDS: BUDESONIDE 0.25 MG/2 ML INH IH SCH ×2 (06:37→19:14)
[2022-07-29] MEDS: IPRATROPIUM 0.5 MG/2.5 ML INH IH SCH ×4 (06:37→23:37)
[2022-07-29] MEDS: INSULIN HUMULIN R 100 UNIT/ML 3ML SQ SCH ×4 (06:46→20:42)
[2022-07-29] MEDS: FOLIC ACID 1 MG TABLET PO SCH (08:07)
[2022-07-29] MEDS: ASPIRIN 81 MG EC TAB PO SCH (08:07)
[2022-07-29] MEDS: PANTOPRAZOLE 40 MG TAB DR PO SCH (08:07)
[2022-07-29] MEDS: FERROUS SULFATE 325 MG TABLET.DR PO SCH (08:07)
[2022-07-29] MEDS: FUROSEMIDE 20 MG TABLET PO SCH ×2 (08:07→18:16)
[2022-07-29] MEDS: DOCUSATE SODIUM 100 MG CAP PO SCH (08:08)
[2022-07-29] MEDS: ENOXAPARIN SODIUM 30 MG/0.3 ML SQ SCH (08:08)
[2022-07-29] MEDS: METOPROLOL TARTRATE 25 MG TAB PO SCH ×2 (08:08→20:53)
[2022-07-29] MEDS ORDERED: FUROSEMIDE 20MG VIAL IV ONE (11:30)
[2022-07-29] MEDS: ATORVASTATIN 40 MG TABLET PO SCH (20:53)
[2022-07-30] VITALS (8 sets, daily range): BP systolic 94–107; BP diastolic 52–58
[2022-07-30 03:14] LABS: BASOPHILS % (AUTO) 0.1 % (0.0-5.0); EOSINOPHILS % (AUTO) 1.5 % (0.0-8.0); HEMATOCRIT 26.1 % (42-54); LYMPHOCYTES % (AUTO) 12.2 % (21.0-51.0); MEAN CORPUSCULAR HEMOGLOBIN 26.8 pg (27.0-33.0); MEAN CORPUSCULAR HGB CONC 31.4 g/dL (32.0-36.0); MEAN CORPUSCULAR VOLUME 85.3 fL (79-99); MONOCYTES % (AUTO) 10.8 % (3.0-13.0); PLATELET COUNT (AUTO) 102 K/uL (130-400); RED BLOOD CELL COUNT(AUTO) 3.06 MIL/uL (4.50-6.20); WHITE BLOOD COUNT (AUTO) 7.1 K/uL (4.8-10.8)
[2022-07-30 03:28] LABS: CREATININE 1.3 mg/dL (0.5-1.5); MAGNESIUM 1.8 mg/dL (1.80-2.40); POTASSIUM 3.2 mmol/L (3.5-5.1)
[2022-07-30] MEDS: MAGNESIUM 2GM PREMIX 50ML 50 ML IV PRN (04:55)
[2022-07-30] MEDS: KCL 20 MEQ ERTAB PO PRN ×3 (04:55→08:31)
[2022-07-30] MEDS: INSULIN HUMULIN R 100 UNIT/ML 3ML SQ SCH ×4 (05:44→20:49)
[2022-07-30] MEDS: BUDESONIDE 0.25 MG/2 ML INH IH SCH ×2 (07:10→18:46)
[2022-07-30] MEDS: IPRATROPIUM 0.5 MG/2.5 ML INH IH SCH ×4 (07:10→23:47)
[2022-07-30] MEDS: METOPROLOL TARTRATE 25 MG TAB PO SCH ×2 (08:31→20:42)
[2022-07-30] MEDS: PANTOPRAZOLE 40 MG TAB DR PO SCH (08:31)
[2022-07-30] MEDS: ASPIRIN 81 MG EC TAB PO SCH (08:31)
[2022-07-30] MEDS: FOLIC ACID 1 MG TABLET PO SCH (08:31)
[2022-07-30] MEDS: FERROUS SULFATE 325 MG TABLET.DR PO SCH (08:31)
[2022-07-30] MEDS: FUROSEMIDE 20 MG TABLET PO SCH ×2 (09:00→16:32)
[2022-07-30] MEDS: ENOXAPARIN SODIUM 30 MG/0.3 ML SQ SCH (09:04)
[2022-07-30] MEDS ORDERED: FUROSEMIDE 20MG VIAL IV ONE ×2 (10:30→11:30)
[2022-07-30 16:58] LABS: MAGNESIUM 2.2 mg/dL (1.80-2.40); POTASSIUM 4.3 mmol/L (3.5-5.1)
[2022-07-30] MEDS: ATORVASTATIN 40 MG TABLET PO SCH (20:42)
[2022-07-31] VITALS (7 sets, daily range): BP systolic 102–119; BP diastolic 51–63
[2022-07-31] MEDS: INSULIN HUMULIN R 100 UNIT/ML 3ML SQ SCH ×4 (05:30→20:19)
[2022-07-31] MEDS: IPRATROPIUM 0.5 MG/2.5 ML INH IH SCH ×4 (07:00→23:43)
[2022-07-31] MEDS: BUDESONIDE 0.25 MG/2 ML INH IH SCH ×2 (07:00→18:34)
[2022-07-31] MEDS: METOPROLOL TARTRATE 25 MG TAB PO SCH ×2 (08:03→20:19)
[2022-07-31] MEDS: FERROUS SULFATE 325 MG TABLET.DR PO SCH (08:03)
[2022-07-31] MEDS: FOLIC ACID 1 MG TABLET PO SCH (08:03)
[2022-07-31] MEDS: PANTOPRAZOLE 40 MG TAB DR PO SCH (08:04)
[2022-07-31] MEDS: FUROSEMIDE 20 MG TABLET PO SCH ×2 (08:04→17:14)
[2022-07-31] MEDS: ASPIRIN 81 MG EC TAB PO SCH (08:04)
[2022-07-31] MEDS: ENOXAPARIN SODIUM 30 MG/0.3 ML SQ SCH (08:05)
[2022-07-31 09:06] LABS: CREATININE 1.2 mg/dL (0.5-1.5); POTASSIUM 3.9 mmol/L (3.5-5.1)
[2022-07-31] MEDS ORDERED: FURO20TA6 PO (10:17)
[2022-07-31] MEDS ORDERED: METO25 PO (10:17)
[2022-07-31] MEDS ORDERED: ATOR40TA69 PO (10:17)
[2022-07-31] MEDS: ATORVASTATIN 40 MG TABLET PO SCH (20:19)
[2022-08-01 03:51] VITALS: BP 89/53
[2022-08-01] MEDS: INSULIN HUMULIN R 100 UNIT/ML 3ML SQ SCH ×3 (06:09→16:30)
[2022-08-01] MEDS: IPRATROPIUM 0.5 MG/2.5 ML INH IH SCH ×2 (06:09→11:37)
[2022-08-01] MEDS: BUDESONIDE 0.25 MG/2 ML INH IH SCH (06:09)
[2022-08-01 07:08] VITALS: BP 103/54
[2022-08-01] MEDS: FOLIC ACID 1 MG TABLET PO SCH (09:32)
[2022-08-01] MEDS: FUROSEMIDE 20 MG TABLET PO SCH ×2 (09:32→17:40)
[2022-08-01] MEDS: FERROUS SULFATE 325 MG TABLET.DR PO SCH (09:32)
[2022-08-01] MEDS: ASPIRIN 81 MG EC TAB PO SCH (09:32)
[2022-08-01] MEDS: PANTOPRAZOLE 40 MG TAB DR PO SCH (09:32)
[2022-08-01] MEDS: METOPROLOL TARTRATE 25 MG TAB PO SCH (09:33)
[2022-08-01] MEDS: ENOXAPARIN SODIUM 30 MG/0.3 ML SQ SCH (09:33)
[2022-08-01 11:08] VITALS: BP 96/53
[2022-08-01 16:26] VITALS: BP 103/59
== END 2022-08-01 17:50 | DRG 235 ==
LOC: DAHIP 07-24 11:33 → 2CV 07-24 18:04 → 2BH 07-25 05:51 → 2AH 07-29 16:25
PROVIDERS: ADMIT Thoracic Surgery (Cardiothoracic Vascular Surgery); ATTEND Thoracic Surgery (Cardiothoracic Vascular Surgery)
PROC: 02100Z9 Bypass Coronary Artery, One Artery from Left Internal Mammary, Open Approach (ICD-10-PCS; principal; 2022-07-24 14:37)
PROC: 021109W Bypass Coronary Artery, Two Arteries from Aorta with Autologous Venous Tissue, Open Approach (ICD-10-PCS; 2022-07-24 14:37)
PROC: 06BQ4ZZ Excision of Left Saphenous Vein, Percutaneous Endoscopic Approach (ICD-10-PCS; 2022-07-24 14:37)
PROC: 30233N1 Transfusion of Nonautologous Red Blood Cells into Peripheral Vein, Percutaneous Approach (ICD-10-PCS; 2022-07-24 14:37)
DX: I25.119 Atherosclerotic heart disease of native coronary artery with unspecified angina pectoris (principal); J96.01 Acute respiratory failure with hypoxia; D62 Acute posthemorrhagic anemia; J90 Pleural effusion, not elsewhere classified; Z20.822 Contact with and (suspected) exposure to COVID-19; E87.5 Hyperkalemia; E83.42 Hypomagnesemia; E78.00 Pure hypercholesterolemia, unspecified; E87.70 Fluid overload, unspecified; I10 Essential (primary) hypertension; I95.9 Hypotension, unspecified; J44.9 Chronic obstructive pulmonary disease, unspecified; J84.10 Pulmonary fibrosis, unspecified; R73.03 Prediabetes; Z79.82 Long term (current) use of aspirin; Z79.899 Other long term (current) drug therapy; Z87.891 Personal history of nicotine dependence; Z95.1 Presence of aortocoronary bypass graft
CPT/HCPCS: 36415; 36430; 36600; 71045; 80048; 80053; 80061; 82330; 82435; 82803; 82947; 82948; 83036; 83605; 83735; 83880; 84100; 84132; 84295; 85018; 85025; 85027; 85520; 85610; 85730; 86850; 86900; 86901; 86923; 87426; 87641; 93005; 93318; 93880; 94002; 94003; 94010; 94150; 94640; 94664; 97039; A7048; G0378; J0171; J0330; J0610; J0690; J1644; J1650; J1815; J1940; J2250; J2405; J2440; J2704; J2720; J3010; J3475; J3480; J3490; J7030; J7040; J7050; P9016; P9045

== ENCOUNTER 2022-08-05 14:48 | Emergency (ER) | payer OTHER, MEDICARE ==
[~2022-08-05] VITALS: Ht 167.6 cm; Wt 74.8 kg
[~2022-08-05 14:48] MED LIST changes: -ATOR20TA65 PO; +ATOR40TA69 PO; +FURO20TA6 PO; +METO25 PO
[2022-08-05 15:32] LABS: BASOPHILS % (AUTO) 0.4 % (0.0-5.0); EOSINOPHILS % (AUTO) 2.3 % (0.0-8.0); HEMATOCRIT 28.4 % (42-54); LYMPHOCYTES % (AUTO) 7.3 % (21.0-51.0); MEAN CORPUSCULAR HEMOGLOBIN 27.2 pg (27.0-33.0); MEAN CORPUSCULAR VOLUME 87.7 fL (79-99); MONOCYTES % (AUTO) 9.5 % (3.0-13.0); NEUTROPHILS % (AUTO) 80.1 % (40.0-77.0); PLATELET COUNT (AUTO) 208 K/uL (130-400); RED BLOOD CELL COUNT(AUTO) 3.24 MIL/uL (4.50-6.20); RED CELL DISTRIBUTION WIDTH 18.4 % (11.0-15.5); WHITE BLOOD COUNT (AUTO) 7.8 K/uL (4.8-10.8)
[2022-08-05 15:43] LABS: CREATININE 1.5 mg/dL (0.5-1.5); POTASSIUM 4.1 mmol/L (3.5-5.1)
[2022-08-05 15:48] LABS: ALBUMIN 2.9 g/dL (3.5-5.0); TOTAL PROTEIN, SERUM 6.4 g/dL (6.0-8.3)
[2022-08-05 15:59] LABS: MAGNESIUM 1.7 mg/dL (1.80-2.40)
[2022-08-05] MEDS ORDERED: CEFTRIAXONE 1G VIAL IVPB SCH (17:30)
[2022-08-05 18:16] VITALS: BP 117/59
[2022-08-05] MEDS ORDERED: LEVO-70 PO (18:29)
[2022-08-05] MEDS ORDERED: LEVOFLOXACIN 500 MG TABLET PO SCH (18:30)
== END 2022-08-05 19:18 | disposition home or self-care (01) ==
LOC: EDH 14:48
DX: L03.116 Cellulitis of left lower limb (principal); I25.2 Old myocardial infarction; Z79.899 Other long term (current) drug therapy
CPT/HCPCS: 99285; 96365; 93971; 83735; 80053; 85025; 87040 ×2; 83605; 36415; J0696

== ENCOUNTER 2022-08-28 14:06 | Emergency (ER) | payer OTHER, MEDICARE ==
[~2022-08-28] VITALS: Ht 177.8 cm; Wt 68.5 kg
[~2022-08-28 14:06] MED LIST changes: +LEVO-70 PO
[2022-08-28] MEDS ORDERED: LIDOCAINE 1%-EPI 1:100,000 20 ML VIAL IJ ONE (14:57)
[2022-08-28] MEDS ORDERED: LIDOCAINE 1%-EPI 1:100,000 20 ML VIAL IJ SCH (15:00)
[2022-08-28] MEDS ORDERED: SILVER NITRATE APPLICATOR 1 SWAB TP SCH (15:00)
[2022-08-28 18:03] VITALS: BP 125/65
== END 2022-08-28 18:05 | disposition home or self-care (01) ==
LOC: EDH 14:06
DX: R04.0 Epistaxis (principal); I25.2 Old myocardial infarction; Z79.899 Other long term (current) drug therapy
CPT/HCPCS: 99284; 30901; J3490

== ENCOUNTER → 2022-10-28 | Outpatient (CLI) | payer OTHER, MEDICARE ==
[~2022-10-28] MED LIST changes: +CLOP75TA32 PO; +FLUT1BLS3 IH; -LEVO-70 PO; +VIT D2
== END | disposition home or self-care (01) ==
LOC: SHCH 13:06
PROVIDERS: ATTEND Student in an Organized Health Care Education/Training Program
DX: I35.0 Nonrheumatic aortic (valve) stenosis (principal); I25.10 Atherosclerotic heart disease of native coronary artery without angina pectoris
CPT/HCPCS: 93306

== ENCOUNTER → 2023-04-26 | Outpatient (CLI) | payer OTHER, MEDICARE ==
[2023-04-26 12:25] LABS: CREATININE 1.3 mg/dL (0.5-1.5); HEMOGLOBIN A1C 5.6 % (4.0-6.0); POTASSIUM 5.3 mmol/L (3.5-5.1)
== END | disposition home or self-care (01) ==
LOC: LAB 08:13
PROVIDERS: ATTEND Student in an Organized Health Care Education/Training Program
DX: I49.1 Atrial premature depolarization (principal); I10 Essential (primary) hypertension; E78.5 Hyperlipidemia, unspecified; D64.9 Anemia, unspecified; I25.10 Atherosclerotic heart disease of native coronary artery without angina pectoris; Z79.899 Other long term (current) drug therapy; Z95.1 Presence of aortocoronary bypass graft
CPT/HCPCS: 36415; 80048; 80061; 83036